=== PATIENT | male | born 1980 | race Caucasian/White ===

== ENCOUNTER 2023-10-19 16:09 | Outpatient (AMB) | payer BC, MEDICAID, SELFPAY ==
[2023-10-19 16:20] VITALS: BP 138/94; PULSE 92; O2SAT 95; BMI 39.1
--- NOTE | 2023-10-19 16:20 | HO.NEPHOV ---
HPI HPI Comments History of Present Illness Details . Solitario is a middle-aged man with a history of significant obesity and hypertension sleep apnea. He has had sleep apnea since age of 19. He uses CPAP regularly. His blood pressure has been difficult to control and chlorthalidone 12.5 mg was added 2 weeks ago. He has been on Ozempic and with diet and exercise he has lost almost 60 lb. Today he has no specific complaints. No headache nausea vomiting. No palpitation no sweating. No polyuria polydipsia. New leg edema. He is history of psoriasis for which she takes clobetasol. No history of any arthritis. [facility] Surgical History H/O hernia repair (~09/2023) H/O removal of cyst (~10/2023) Family History (Updated 10/19/23 @ 16:24 by Vanda Fisher) Father Hypertension Social History (Updated 10/19/23 @ 16:24 by Vanda Fisher) Alcohol intake: current Comment: occ Patient Tobacco Use Status: Former Tobacco user Vital Signs 10/19/23 16:20 Height 5 ft 8 in Weight 257 lb BMI 39.1 BP 138/94 H Blood Pressure Location Lt brachial Position Sitting Pulse 92 Pulse Source Pulse Oximeter Pulse Oximetry (%) 95 Oxygen Delivery Method Room Air Physical Exam Vital Signs: Last Vital Signs Pulse 92 10/19/23 16:20 BP 138/94 H 10/19/23 16:20 Pulse Ox 95 10/19/23 16:20 Oxygen Delivery Method Room Air 10/19/23 16:20 BMI result Body Mass Index 39.1 Repeat blood pressure is 130/90 mm Hg in the left upper extremity. Sitting and standing blood pressure 130/90 mm Hg Const General: comfortable Nutritional Appearance: well nourished Orientation/consciousness: patient oriented x3 HEENT Head: No normal to inspection Mouth: moist mucous membranes Neck Neck: Yes supple and Yes no JVD Resp Auscultation: clear to auscultation bilaterally, no rales and rub present Cardio Jugular venous distension: no JVD Palpation: no palpable S3 and no palpable S4 Heart sounds: no rubs GI Palpation (GI): Soft to palpation and nontender Percussion: No Fluid wave present General: Yes no CVA tenderness Back/Spine/Pelvis Back: no CVA tenderness Skin Rashes: rashes noted (Psoriatic) Neuro General: patient oriented x3 Extrem General: Yes no pedal edema and No clubbing Assessment & Plan Assessment & Plan (1) HTN (hypertension): Comment: In the setting of obesity and sleep apnea. No evidence of hypokalemia or alkalosis Code(s): I10 - Essential (primary) hypertension Plan: At present blood pressure is better controlled. Goal is to maintain blood pressure less than 130/80 mm Hg. We discussed importance of weight loss. He needs to stay on a low-sodium diet which we have discussed. Continue using CPAP regularly which will definitely help to optimize blood pressure. I have increased chlorthalidone from 12.5 mg up to 25 mg once a day. Watch blood pressure with the next few weeks. Once the blood pressure is stabilized we can use a combination pill including amlodipine GISELLE inhibitor and diuretic. Encouraged him to keep monitoring blood pressure at home and to call us if he has any symptoms of hypotension including lightheadedness. Since he is actively losing weight I expect the requirements for antihypertensives to decrease as he loses weight. Medications: New chlorthalidone 25 mg PO QAM 30 tabs 1RF Coding Level of Care Code New Pt Level 4 (39778) Diagnoses HTN (hypertension) I10 Results Reviewed Results Reviewed: All lab results were reviewed serum creatinine 0.7 Serum potassium and CO2 are normal Nephrology Results: No Data to Display
== END 2023-10-19 16:50 | disposition home or self-care (01) ==
PROVIDERS: PCP Family Medicine; Referring Provider Family Medicine; Visit Provider Internal Medicine Hypertension Specialist
DX: I10 Essential (primary) hypertension (principal)
CPT/HCPCS: 99204

== ENCOUNTER → 2023-10-19 16:09 | Outpatient (BNVA) | payer BC, MEDICAID, SELFPAY | PROVIDERS: PCP Family Medicine; Referring Provider Family Medicine; Visit Provider Internal Medicine Hypertension Specialist ==

== ENCOUNTER 2023-11-16 11:31 | Outpatient (AMB) | payer BC, MEDICAID, SELFPAY ==
[2023-11-16 11:32] VITALS: BP 100/80; PULSE 81; O2SAT 95; BMI 38.5
--- NOTE | 2023-11-16 11:32 | HO.NEPHOV ---
HPI HPI Comments History of Present Illness Details . Solitario is a middle-aged man with a history of significant obesity and hypertension sleep apnea. He has had sleep apnea since age of 19. He uses CPAP regularly. His blood pressure has been difficult to control and chlorthalidone 12.5 mg was added 2 weeks ago. He has been on Ozempic and with diet and exercise he has lost almost 60 lb. Today he has no specific complaints. No headache nausea vomiting. No palpitation no sweating. No polyuria polydipsia. New leg edema. He is history of psoriasis for which she takes clobetasol. No history of any arthritis. 11/16/23 Doing well Lost 4 lbs No new issues PFSH Surgical History H/O hernia repair (~09/2023) H/O removal of cyst (~10/2023) Family History Father Hypertension Social History Alcohol intake: current Comment: occ Patient Tobacco Use Status: Former Tobacco user Vital Signs 11/16/23 11:32 Height 5 ft 8 in Weight 253 lb BMI 38.5 BP 100/80 Blood Pressure Location Lt brachial Position Sitting Pulse 81 Pulse Source Pulse Oximeter Pulse Oximetry (%) 95 Oxygen Delivery Method Room Air Physical Exam Vital Signs: Last Vital Signs Pulse 81 11/16/23 11:32 BP 100/80 11/16/23 11:32 Pulse Ox 95 11/16/23 11:32 Oxygen Delivery Method Room Air 11/16/23 11:32 BMI result Body Mass Index 38.5 Repeat blood pressure is 130/90 mm Hg in the left upper extremity. Sitting and standing blood pressure 130/90 mm Hg Const General: comfortable Nutritional Appearance: well nourished Orientation/consciousness: patient oriented x3 HEENT Head: No normal to inspection Mouth: moist mucous membranes Neck Neck: Yes supple and Yes no JVD Resp Auscultation: clear to auscultation bilaterally, no rales and rub present Cardio Jugular venous distension: no JVD Palpation: no palpable S3 and no palpable S4 Heart sounds: no rubs GI Palpation (GI): Soft to palpation and nontender Percussion: No Fluid wave present General: Yes no CVA tenderness Back/Spine/Pelvis Back: no CVA tenderness Skin Rashes: rashes noted (Psoriatic) Neuro General: patient oriented x3 Extrem General: Yes no pedal edema and No clubbing Assessment & Plan Assessment & Plan (1) HTN (hypertension): Comment: In the setting of obesity and sleep apnea. No evidence of hypokalemia or alkalosis Code(s): I10 - Essential (primary) hypertension Plan: At present blood pressure is better controlled. Goal is to maintain blood pressure less than 130/80 mm Hg. We discussed importance of weight loss. He needs to stay on a low-sodium diet which we have discussed. Continue using CPAP regularly which will definitely help to optimize blood pressure. Keep chlorthalidone 25 mg once a day. Encouraged him to keep monitoring blood pressure at home and to call us if he has any symptoms of hypotension including lightheadedness. Since he is actively losing weight I expect the requirements for antihypertensives to decrease as he loses weight. Orders: Orders Basic Metabolic Panel 6 Weeks I10 - Essential (primary) hypertension Coding Level of Care Code Est Pt Level 4 (48341) Diagnoses HTN (hypertension) I10 Results Reviewed Nephrology Results: No Data to Display
== END 2023-11-16 11:47 | disposition home or self-care (01) ==
PROVIDERS: PCP Family Medicine; Visit Provider Internal Medicine Hypertension Specialist
DX: I10 Essential (primary) hypertension (principal)
CPT/HCPCS: 99214

== ENCOUNTER → 2023-11-16 11:31 | Outpatient (BNVA) | payer BC, MEDICAID, SELFPAY | PROVIDERS: PCP Family Medicine; Visit Provider Internal Medicine Hypertension Specialist ==

== ENCOUNTER 2024-01-11 10:49 | Outpatient (AMB) | payer BC, MEDICAID, SELFPAY ==
[2024-01-11 10:53] VITALS: BP 98/72; PULSE 79; O2SAT 96; BMI 38.5
--- NOTE | 2024-01-11 10:53 | HO.NEPHOV_ITS ---
Vital Signs 01/11/24 10:53 Height 5 ft 8 in Weight 253 lb BMI 38.5 BP 98/72 Blood Pressure Location Lt brachial Position Sitting Pulse 79 Pulse Source Pulse Oximeter Pulse Oximetry (%) 96 Oxygen Delivery Method Room Air Intake Visit Reasons: 8 week F/U/ Confirmed Stick Inserter Required: No Accompanied by: Self / Same As Patient Allergies No Known Allergies Allergy (Verified 01/11/24 10:54) Medication List - Last Reconciled 01/11/24 by Eduardo Albert MD amlodipine 5 mg PO DAILY buprenorphine-naloxone 12-3 mg 7 mg sublingual DAILY clobetasol 0.05% 1 appl topical DAILY clonazepam 0.5 mg PO TID PRN lisinopril 20 mg PO DAILY HPI Comments Details: . Solitario is a middle-aged man with a history of significant obesity and hypertension sleep apnea. He has had sleep apnea since age of 19. He uses CPAP regularly. His blood pressure has been difficult to control and chlorthalidone 12.5 mg was added 2 weeks ago. He has been on Ozempic and with diet and exercise he has lost almost 60 lb. Today he has no specific complaints. No headache nausea vomiting. No palpitation no sweating. No polyuria polydipsia. New leg edema. He is history of psoriasis for which she takes clobetasol. No history of any arthritis. 11/16/23 Doing well;Lost 4 lbs ;No new issues 01/11/2024. Solitario has been compliant with his medications. He has been getting lightheadedness when he bends down. Home blood pressure readings have been acceptable. [facility] Surgical History H/O hernia repair (~09/2023) H/O removal of cyst (~10/2023) Family History Father Hypertension Social History Alcohol intake: current Comment: [facility] Patient Tobacco Use Status: Former Tobacco user Physical Exam Vital Signs: Last Vital Signs Pulse 79 01/11/24 10:53 BP 98/72 01/11/24 10:53 Pulse Ox 96 01/11/24 10:53 Oxygen Delivery Method Room Air 01/11/24 10:53 BMI result Body Mass Index 38.5 Const General: comfortable Nutritional Appearance: well nourished Orientation/consciousness: patient oriented x3 HEENT Head: No normal to inspection Mouth: moist mucous membranes Neck Neck: Yes supple and Yes no JVD Resp Auscultation: clear to auscultation bilaterally, no rales and rub present Cardio Jugular venous distension: no JVD Palpation: no palpable S3 and no palpable S4 Heart sounds: no rubs GI Palpation (GI): Soft to palpation and nontender Percussion: No Fluid wave present General: Yes no CVA tenderness Back/Spine/Pelvis Back: no CVA tenderness Skin Rashes: rashes noted (Psoriatic) Neuro General: patient oriented x3 Extrem General: Yes no pedal edema and No clubbing Results Reviewed Results Reviewed: 01/09/2024. Creatinine 0.91 serum lytes normal Potassium 3.6 Nephrology Results: No Data to Display Assessment & Plan Assessment & Plan (1) HTN (hypertension): Comment: In the setting of obesity and sleep apnea. No evidence of hypokalemia or alkalosis Code(s): I10 - Essential (primary) hypertension Category: Medical Plan: . Blood pressure is rather low. I will stop chlorthalidone. Encouraged to watch blood pressure at home and call me with the readings in the next 1-2 weeks. If the blood pressure is suboptimal I will start him back at a lower dose of chlorthalidone at probably 12.5 mg a day. Since he is actively losing weight I expect the requirements for antihypertensives to decrease as he loses weight. We discussed importance of weight loss. He needs to stay on a low-sodium diet which we have discussed. Continue using CPAP regularly which will definitely help to optimize blood pressure. Medications: Discontinued chlorthalidone Discontinued Reason: Doctor's Order 25 mg PO QAM 30 tabs 1RF Coding Level of Care Code Est Pt Level 4 (18918) Diagnoses HTN (hypertension) I10
== END 2024-01-11 11:17 | disposition home or self-care (01) ==
PROVIDERS: PCP Family Medicine; Visit Provider Internal Medicine Hypertension Specialist
DX: I10 Essential (primary) hypertension (principal)
CPT/HCPCS: 99214

== ENCOUNTER → 2024-01-11 10:49 | Outpatient (BNVA) | payer BC, MEDICAID, SELFPAY | PROVIDERS: PCP Family Medicine; Visit Provider Internal Medicine Hypertension Specialist ==

== ENCOUNTER 2024-03-28 10:58 | Outpatient (AMB) | payer BC, MEDICAID, SELFPAY ==
--- NOTE | 2024-03-28 11:04 | HO.NEPHOV ---
Vital Signs 03/28/24 11:05 Height 5 ft 8 in Weight 253 lb BMI 38.5 BP 144/100 H Blood Pressure Location Lt brachial Position Sitting Pulse 77 Pulse Source Pulse Oximeter Pulse Oximetry (%) 98 Oxygen Delivery Method Room Air Intake Visit Reasons: 8 week F/U/ Conf Third Loader Required: No Accompanied by: Self / Same As Patient Allergies No Known Allergies Allergy (Verified 03/28/24 11:06) Medication List - Last Reconciled 03/28/24 by Eduardo Albert MD amlodipine 5 mg PO DAILY buprenorphine-naloxone 12-3 mg 7 mg sublingual DAILY clobetasol 0.05% 1 appl topical DAILY clonazepam 0.5 mg PO TID PRN lisinopril 20 mg PO DAILY HPI Comments Details: . Solitario is a middle-aged man with a history of significant obesity and hypertension sleep apnea. He has had sleep apnea since age of 19. He uses CPAP regularly. His blood pressure has been difficult to control and chlorthalidone 12.5 mg was added 2 weeks ago. He has been on Ozempic and with diet and exercise he has lost almost 60 lb. Today he has no specific complaints. No headache nausea vomiting. No palpitation no sweating. No polyuria polydipsia. New leg edema. He is history of psoriasis for which she takes clobetasol. No history of any arthritis. 11/16/23 Doing well;Lost 4 lbs ;No new issues 01/11/2024. Solitario has been compliant with his medications. He has been getting lightheadedness when he bends down. Home blood pressure readings have been acceptable. 03/28/24 Back on Chlorthalidone [facility] Surgical History H/O hernia repair (~09/2023) H/O removal of cyst (~10/2023) Family History Father Hypertension Social History Alcohol intake: current Comment: [facility] Patient Tobacco Use Status: Former Tobacco user Physical Exam Vital Signs: Last Vital Signs Pulse 77 03/28/24 11:05 BP 144/100 H 03/28/24 11:05 Pulse Ox 98 08/21/24 11:05 Oxygen Delivery Method Room Air 03/28/24 11:05 BMI result Body Mass Index 38.5 Const General: comfortable; No acute distress Orientation/consciousness: patient oriented x3 Eyes General: appearance normal, both eyes and all related structures Visual Lozano: normal visual lozano by confrontation Neck Neck: Yes supple and Yes no JVD Resp Effort & Inspection: normal respiratory effort and respiratory effort not decreased Auscultation: rhonchi Cardio Palpation: no palpable S3 and no palpable S4 Heart sounds: no rubs GI Inspection: Yes normal to inspection Palpation (GI): Soft to palpation Percussion: Yes normal to percussion Auscultation: normal bowel sounds General: Yes no CVA tenderness Back/Spine/Pelvis Back: no CVA tenderness Skin General skin exam: no petechiae and no purpura Neuro General: patient oriented x3 and no focal motor deficits Extrem General: No clubbing and No edema Results Reviewed Nephrology Results: No Data to Display Assessment & Plan Assessment & Plan (1) HTN (hypertension): Comment: In the setting of obesity and sleep apnea. No evidence of hypokalemia or alkalosis Code(s): I10 - Essential (primary) hypertension Category: Medical Plan: . Blood pressure is better controlled Stop Amlodipine 5/Lisinopril 20 /chlorthalidone 12.5 Try exforge HCT 5/169/12.5 We discussed importance of weight loss. He needs to stay on a low-sodium diet which we have discussed. Continue using CPAP regularly which will definitely help to optimize blood pressure. Medications: New [id number]-[id number]-opgecqxvq 5-160-12.5 mg (Exforge HCT) 1 tab PO DAILY 30 tabs 1RF Coding Level of Care Code Est Pt Level 4 (56004) Diagnoses HTN (hypertension) I10
[2024-03-28 11:05] VITALS: BP 144/100; PULSE 77; O2SAT 98; BMI 38.5
== END 2024-03-28 11:23 | disposition home or self-care (01) ==
PROVIDERS: PCP Family Medicine; Visit Provider Internal Medicine Hypertension Specialist
DX: I10 Essential (primary) hypertension (principal)
CPT/HCPCS: 99214

== ENCOUNTER → 2024-03-28 10:58 | Outpatient (BNVA) | payer BC, MEDICAID, SELFPAY | PROVIDERS: PCP Family Medicine; Visit Provider Internal Medicine Hypertension Specialist ==

== ENCOUNTER 2024-07-18 10:05 | Outpatient (AMB) | payer BC, MEDICAID, SELFPAY ==
--- NOTE | 2024-07-18 10:09 | HO.NEPHOV_ITS ---
Vital Signs 07/18/24 10:10 07/18/24 10:28 Height 5 ft 8 in Weight 250 lb BMI 38.0 BP 138/92 H 134/88 Blood Pressure Location Lt brachial Lt brachial Position Sitting Sitting Pulse 86 Pulse Source Pulse Oximeter Pulse Oximetry (%) 98 Oxygen Delivery Method Room Air Intake Visit Reasons: 3 mon follow up/ LVM Lead Web Application Developer Required: No Accompanied by: Self / Same As Patient Allergies No Known Allergies Allergy (Verified 07/18/24 10:11) Medication List - Last Reconciled 07/18/24 by Eduardo Albert MD [id number]-[id number]-[id number] 5-160-12.5 mg 1 tab PO DAILY buprenorphine-naloxone 12-3 mg 7 mg sublingual DAILY clobetasol 0.05% 1 appl topical DAILY clonazepam 0.5 mg PO TID PRN HPI Comments Details: . Solitario is a middle-aged man with a history of significant obesity and hypertension sleep apnea. He has had sleep apnea since age of 19. He uses CPAP regularly. His blood pressure has been difficult to control and chlorthalidone 12.5 mg was added 2 weeks ago. He has been on Ozempic and with diet and exercise he has lost almost 60 lb. Today he has no specific complaints. No headache nausea vomiting. No palpitation no sweating. No polyuria polydipsia. New leg edema. He is history of psoriasis for which she takes clobetasol. No history of any arthritis. 11/16/23 Doing well;Lost 4 lbs ;No new issues 01/11/2024. Solitario has been compliant with his medications. He has been getting lightheadedness when he bends down. Home blood pressure readings have been acceptable. 03/28/24;Back on Chlorthalidone 07/18/24 tolerating Exforge Lost about 50-60 lbs iwth ozempic Conpleting course of Ozempic this month [facility] Surgical History H/O hernia repair (~09/2023) H/O removal of cyst (~10/2023) Family History Father Hypertension Social History Alcohol intake: current Comment: occ Patient Tobacco Use Status: Former Tobacco user Physical Exam Vital Signs: Last Vital Signs Pulse 86 07/18/24 10:10 BP 138/92 H 07/18/24 10:10 Pulse Ox 98 07/18/24 10:10 Oxygen Delivery Method Room Air 07/18/24 10:10 BMI result Body Mass Index 38.0 Comfortable Neck supple no JVD. Lungs entry equal no rales. Heart S1-S2 heard no gallop or rub. Abdomen soft nontender. Neuro alert awake oriented. No asterixis. Extremities no edema. Results Reviewed Nephrology Results: No Data to Display Assessment & Plan Assessment & Plan (1) HTN (hypertension): Comment: In the setting of obesity and sleep apnea. No evidence of hypokalemia or alkalosis Code(s): I10 - Essential (primary) hypertension Category: Medical Plan: . Blood pressure is better controlled Keep exforge HCT 5/160/12.5 We discussed importance of weight loss. He needs to stay on a low-sodium diet which we have discussed. Continue using CPAP regularly which will definitely help to optimize blood pressure. Coding Level of Care Code Est Pt Level 4 (83709) Diagnoses HTN (hypertension) I10
[2024-07-18 10:10] VITALS: BP 138/92; PULSE 86; O2SAT 98; BMI 38.0
[2024-07-18 10:28] VITALS: BP 134/88
--- OUTSIDE RECORDS SUMMARY | 2024-07-19 00:02 | XMS_ITS ---
Author Name [facility] Organization Unknown History of Medication Use Medication Directions Dispensed Refills Start Date End Date Stat amLODIPine (NORVASC) 5 MG tablet Take 5 mg by mouth daily. 06/24/2023 active semaglutide (OZEMPIC) (1 mg/dose pen) prefilled pen injection Inject 1 mg under the skin once a week. 06/24/2023 active buprenorphine-naloxo ne (SUBOXONE) 12-3 MG per SL film DISSOLVE 1/2 FILM UNDER THE TONGUE EVERY DAY 06/24/2023 active lisinopril (PRINIVIL,ZeSTRIL) 5 MG tablet Take 5 mg by mouth daily. 06/24/2023 aborted clonazePAM (KlonoPIN) 0.5 MG tablet Take 0.5 mg by mouth 3 (three) times a day as needed. 06/24/2023 active lisinopril (PRINIVIL,ZeSTRIL) 20 MG tablet Take 1 tablet by mouth. 08/28/2023 active Problems Problem Status Onset Date Problem Type Date of Resoluti on Source Fever, unspecified fever cause active [facility] Flu active [facility]
== END 2024-07-18 10:31 | disposition home or self-care (01) ==
PROVIDERS: PCP Family Medicine; Visit Provider Internal Medicine Hypertension Specialist
DX: I10 Essential (primary) hypertension (principal)
CPT/HCPCS: 99214

== ENCOUNTER → 2024-07-18 10:05 | Outpatient (BNVA) | payer BC, MEDICAID, SELFPAY | PROVIDERS: PCP Family Medicine; Visit Provider Internal Medicine Hypertension Specialist ==

== ENCOUNTER 2025-01-16 09:58 | Outpatient (AMB) | payer BC, SELFPAY ==
[2025-01-16 10:00] VITALS: BP 146/98; PULSE 87; O2SAT 97; BMI 37.7
--- NOTE | 2025-01-16 10:00 | HO.NEPHOV ---
Vital Signs 01/16/25 10:00 01/16/25 10:09 Height 5 ft 8 in Weight 248 lb BMI 37.7 BP 146/98 H 120/90 H Blood Pressure Location Lt brachial Lt brachial Position Sitting Sitting Pulse 87 Pulse Source Pulse Oximeter Pulse Oximetry (%) 97 Oxygen Delivery Method Room Air Intake Visit Reasons: 6 mnts f/u LVM Storeroom Supervisor Required: No Accompanied by: Self / Same As Patient Allergies No Known Allergies Allergy (Verified 01/16/25 10:02) Medication List - Last Reconciled 01/16/25 by Eduardo Albert MD [id number]-whngzkmhv-[id number] 5-160-12.5 mg 1 tab PO DAILY buprenorphine ER (Brixadi Monthly) mg subcut buprenorphine-naloxone 8-2 mg 1 film sublingual DAILY PRN cholecalciferol (vitamin D3) 50 mcg PO DAILY clobetasol 0.05% 1 appl topical DAILY clonazepam 0.5 mg PO TID PRN HPI Comments Details: . Solitario is a middle-aged man with a history of significant obesity and hypertension sleep apnea. He has had sleep apnea since age of 19. He uses CPAP regularly. His blood pressure has been difficult to control and chlorthalidone 12.5 mg was added 2 weeks ago. He has been on Ozempic and with diet and exercise he has lost almost 60 lb. Today he has no specific complaints. No headache nausea vomiting. No palpitation no sweating. No polyuria polydipsia. New leg edema. He is history of psoriasis for which she takes clobetasol. No history of any arthritis. 11/16/23 Doing well;Lost 4 lbs ;No new issues 01/11/2024. Solitario has been compliant with his medications. He has been getting lightheadedness when he bends down. Home blood pressure readings have been acceptable. 03/28/24;Back on Chlorthalidone 07/18/24 tolerating Exforge Lost about 50-60 lbs iwth ozempic Completing course of Ozempic this month 01/16/25 The patient is a 44-year-old male presenting with essential hypertension for ongoing management and monitoring. Notably, the patient experiences elevated blood pressure readings primarily in clinical environments, suspecting white-coat hypertension. There is a notable absence of self-monitoring at home recently, as indicated by patient?s admission of forgetting to measure his blood pressure outside office visits. Despite these elevated clinical readings, the patient feels asymptomatic and attributes his status to an improved lifestyle, which includes significant weight loss of approximately 60 pounds and healthier dietary choices. The patient's previous primary healthcare provider has recently retired, necessitating the establishment of a new primary care for comprehensive management of his hypertension. The patient's blood pressure was initially recorded as 146/98 mmHg during this office visit but decreased to 120/90 mmHg upon subsequent measurement, consistent with prior visitation trends of varying blood pressure readings within the clinical setting. [facility] Surgical History H/O hernia repair (~09/2023) H/O removal of cyst (~10/2023) Family History Father Hypertension Social History Alcohol intake: current Comment: occ Patient Tobacco Use Status: Former Tobacco user Physical Exam Vital Signs: Last Vital Signs Pulse 87 01/16/25 10:00 BP 120/90 H 01/16/25 10:09 Pulse Ox 97 01/16/25 10:00 Oxygen Delivery Method Room Air 01/16/25 10:00 BMI result Body Mass Index 37.7 Comfortable Neck supple no JVD. Lungs entry equal no rales. Heart S1-S2 heard no gallop or rub. Abdomen soft nontender. Neuro alert awake oriented. No asterixis. Extremities no edema. Assessment & Plan Assessment & Plan (1) HTN (hypertension): Comment: In the setting of obesity and sleep apnea. No evidence of hypokalemia or alkalosis Code(s): I10 - Essential (primary) hypertension Category: Medical Plan: . Blood pressure is better controlled Keep exforge HCT 5/160/12.5 We discussed importance of weight loss. He needs to stay on a low-sodium diet which we have discussed. Continue using CPAP regularly which will definitely help to optimize blood pressure. 01/16/25 - Continue with a low salt diet and regular exercise. - Measure blood pressure regularly at home and record readings. - Take lab order papers to [facility] for blood work before the next visit. - Establish care with a new primary care physician. - Follow up in six months or sooner if there are any changes in symptoms. - Contact healthcare provider for any sudden health changes or concerns. Orders: Orders Basic Metabolic Panel 6 Months I10 - Essential (primary) hypertension Total Protein Urine Random 6 Months I10 - Essential (primary) hypertension UA and rflx microscopic 6 Months I10 - Essential (primary) hypertension Creatinine Urine 6 Months I10 - Essential (primary) hypertension Coding Level of Care Code Est Pt Level 4 (68809) Diagnoses HTN (hypertension) I10
[2025-01-16 10:09] VITALS: BP 120/90
--- OUTSIDE RECORDS SUMMARY | 2025-01-16 11:07 | XMS_ITS | Clinical Summary ---
Author Organization Formerly [facility] Address [address] [place] [address] Care Team Providers Care E Business Manager Name Role Phone Unknown Primary Care Provider [phone] Allergies No known active allergies Medications buprenorphine-n aloxone (SUBOXONE) 12-3 MG per SL film DISSOLVE 1/2 FILM UNDER THE TONGUE EVERY DAY 06/20/2023 Active clonazePAM (KlonoPIN) 0.5 MG tablet Take 0.5 mg by mouth 3 (three) times a day as needed. 04/21/2023 Active amLODIPine (NORVASC) 5 MG tablet Take 5 mg by mouth daily. 06/16/2023 Active semaglutide (OZEMPIC) (1 mg/dose pen) prefilled pen injection Inject 1 mg under the skin once a week. Active lisinopril (PRINIVIL,ZeSTR IL) 20 MG tablet Take 1 tablet by mouth. 11/16/2022 Active Social History Tobacco Use Types Packs/Day Years Used Date Smoking Tobacco: Never Assessed Sex and Gender Information Value Date Recorded Sex Assigned at Male 06/22/2023 1:40 PM EST Legal Sex Male 1:39 PM EST Gender Identity Not on file Sexual Orientation Not on file Last Filed Vital Signs Vital Sign Reading Time Taken Comments Blood Pressure 150/94 08/26/2023 8:12 AM EST Pulse 88 08/26/2023 8:12 AM EST Temperature 37.4 ??C (99.4 ??F) 08/26/2023 8:12 AM ES T Respiratory Rate - - Oxygen Saturation 95% 08/26/2023 8:12 AM EST Inhaled Oxygen Concentration - - Weight - - Height - - Body Mass Index - - Plan of Treatment Health Maintenance Due Date Last Done Comments Hepatitis C Virus Screening 1980 HIV Screening 1993 DTaP/Tdap/Td Vaccines (1 - Tdap) 1999 Hepatitis B Vaccines (1 of 3 - 19+ 3-dose series) 1999 COVID-19 Vaccine (4 - 2023-2 5 season) 2024 07/28/2021, 09/25/2020, 08/28/2020 Influenza Vaccine 03/08/2025 05/23/2014, 05/29/2012, 06/05/2010 HPV Vaccines Aged Out No longer eligi ble based on patient's age to complete this topic Pneumococcal Vaccine: Pediatric (0-5 Years) and At-Risk Patients (6 to 49 Years) Aged Out No longer eligible b ased on patient's age to complete this topic Insurance [facility] Care Teams E Business Manager Relationship Specialty Start Date End Date Unknown Unknow Provider Address PCP - General 06/22/23
== END 2025-01-16 10:13 | disposition home or self-care (01) ==
PROVIDERS: PCP Family Medicine; Visit Provider Internal Medicine Hypertension Specialist
DX: I10 Essential (primary) hypertension (principal)
CPT/HCPCS: 99214

== ENCOUNTER 2025-07-24 09:10 | Outpatient (AMB) | payer BC, SELFPAY ==
[2025-07-24 09:31] VITALS: BP 160/98; PULSE 92; O2SAT 97; BMI 39.4
--- NOTE | 2025-07-24 09:31 | HO.NEPHOV_ITS ---
Vital Signs 07/24/25 09:31 07/24/25 09:45 Height 5 ft 8 in Weight 259 lb BMI 39.4 BP 160/98 H 138/92 H Blood Pressure Location Lt brachial Lt brachial Position Sitting Sitting Pulse 92 Pulse Source Pulse Oximeter Pulse Oximetry (%) 97 Oxygen Delivery Method Room Air Intake Visit Reasons: 6 mo follow up-Conf 07/16/2025 in person Nurses' Registry Director Required: No Accompanied by: Self / Same As Patient Allergies No Known Allergies Allergy (Verified 07/24/25 09:32) Medication List - Last Reconciled 07/24/25 by Eduardo Albert MD [id number] 5-160-12.5 mg 1 tab PO DAILY buprenorphine ER (Brixadi Monthly) mg subcut buprenorphine-naloxone 8-2 mg 1 film sublingual DAILY PRN cholecalciferol (vitamin D3) 50 mcg PO DAILY clobetasol 0.05% 1 appl topical DAILY clonazepam 0.5 mg PO TID PRN HPI Comments Details: History of Present Illness The patient is a 45 year old male presenting with a follow-up for hypertension management. He reports that his blood pressure is usually high. His current medications include amlodipine, valsartan, and hydrochlorothiazide. He saw his new primary care physician last week, who noted his blood pressure was in the 130s/80s and made no changes to his medications. The patient's weight has increased from 248 lbs to 259 lbs in the last six months. He is aware of the weight gain and is scheduled to start Zepbound after a formula change in his Ozempic prescription. The patient reports feeling a little congested, but his breathing has been okay. His diet includes frequent takeout meals such as pasta, but he limits Turkmen food and fast food. 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 Results [facility] Surgical History H/O hernia repair (~09/2023) H/O removal of cyst (~10/2023) Family History Father Hypertension Social History (Reviewed 07/24/25 @ 09:32 by CARON Linares Alcohol intake: current Comment: occ Patient Tobacco Use Status: Former Tobacco user Physical Exam Exam Exam: Physical Exam General: Awake. Comfortable. HENT: Neck supple. Mucosa moist. Pulmonary: Lungs aeration equal. Slight congestion noted. Cardiology: Heart S1-S2 heard. No gallop. Abdomen: Soft. Non tender. Bowel sounds normal. Neurologic: No involuntary movements. No myoclonus. Extremities: No edema. No rash. Vital Signs: Last Vital Signs Pulse 92 07/24/25 09:31 BP 138/92 H 07/24/25 09:45 Pulse Ox 97 07/24/25 09:31 Oxygen Delivery Method Room Air 07/24/25 09:31 BMI result Body Mass Index 39.4 Assessment & Plan Assessment & Plan (1) HTN (hypertension): Comment: In the setting of obesity and sleep apnea. No evidence of hypokalemia or alkalosis Code(s): I10 - Essential (primary) hypertension Category: Medical Plan: . Blood pressure is better controlled Keep exforge HCT 5/160/12.5 We discussed importance of weight loss. He needs to stay on a low-sodium diet which we have discussed. Continue using CPAP regularly which will definitely help to optimize blood pressure. 01/16/25 - Continue with a low salt diet and regular exercise. - Measure blood pressure regularly at home and record readings. - Take lab order papers to [facility] for blood work before the next visit. - Establish care with a new primary care physician. - Follow up in six months or sooner if there are any changes in symptoms. - Contact healthcare provider for any sudden health changes or concerns. Plan Plan 1. Hypertension - The patient's blood pressure is slightly elevated, which is attributed to his recent weight gain. - No changes will be made to his current blood pressure medications (amlodipine, valsartan, hydrochlorothiazide), as his blood pressure is expected to improve with weight loss from starting Zepbound. - The patient was advised to monitor his blood pressure at home once or twice a week and to call if it remains above 140 mmHg. - He was counseled to reduce dietary salt intake, particularly from takeout food. - He was advised to maintain good hydration. - He will follow-up in six months. 2. Obesity - The patient has gained 11 pounds in six months, which he attributes to a change in his Ozempic medication. - He is scheduled to start Zepbound to aid with weight loss. - He was encouraged to continue his physical activity, which includes coaching wrestling and baseball three times a week. - The patient is scheduled to see his primary care physician in October. Orders: Orders Basic Metabolic Panel 6 Months I10 - Essential (primary) hypertension Coding Level of Care Code Est Pt Level 4 (35109) Diagnoses HTN (hypertension) I10
[2025-07-24 09:45] VITALS: BP 138/92
--- OUTSIDE RECORDS SUMMARY | 2025-07-24 10:05 | XMS_ITS | Clinical Summary ---
Author Organization [facility] Address [address] [place] [address] Care Team Providers Care Commercial Crabber Name Role Phone Unknown Primary Care Provider [phone] Allergies No known active allergies Medications buprenorphine-n [...] 88 08/26/2023 8:12 AM EST Temperature 37.4 C (99.4 F) 08/26/2023 8:12 AM EST Respiratory Rate - - Oxygen Saturation 95% 08/26/2023 8:12 AM EST Inhaled Oxygen Concentration - - Weight - - Height - - Body Mass Index - - Plan of Treatment Health Maintenance Due Date Last Done Comments Hepatitis C Virus Screening 1980 HIV Screening 1993 DTaP/Tdap/Td Vaccines (1 - Tdap) 1999 Hepatitis B Vaccines (1 of 3 - 19+ 3-dose series) 1999 Influenza Vaccine 03/08/2025 05/23/2014, 05/29/2012, 06/05/2010 COVID-19 Vaccine (4 - 2024-2 6 season) 2025 07/28/2021, 09/25/2020, 08/28/2020 Colonoscopy 2025 HPV Vaccines (No Doses Required) Completed Pneumococcal Vaccine: Pediatric (0-5 Years) and At-Risk Patients (6 to 49 Years) Aged Out No longer eligible b ased on patient's age to complete this topic Insurance [facility] Care Teams Commercial Crabber Relationship Specialty Start Date End Date Unknown Unknow Provider Address PCP - General 06/22/23
--- OUTSIDE RECORDS SUMMARY | 2025-07-24 10:05 | XMS_ITS ---
Author Name [facility] Organization Unknown History of Medication Use Medication Directions Dispensed Refills Start Date End Date Stat us buprenorphine-nalox one (SUBOXONE) 12-3 MG per SL film DISSOLVE 1/2 FILM UNDER THE TONGUE EVERY DAY 06/20/2023 active amLODIPine (NORVASC) 5 MG tablet Take 5 mg by mouth daily. 06/16/2023 active clonazePAM (KlonoPIN) 0.5 MG tablet Take 0.5 mg by mouth 3 (three) times a day as needed. 04/21/2023 active lisinopril (PRINIVIL,ZeSTRIL) 20 MG tablet Take 1 tablet by mouth. 11/16/2022 active lisinopril (PRINIVIL,ZeSTRIL) 5 MG tablet Take 5 mg by mouth daily. 08/26/2023 aborted semaglutide (OZEMPIC) (1 mg/dose pen) prefilled pen injection Inject 1 mg under the skin once a week. active Problems Problem Status Onset Date Problem Type Date of Resoluti on Source Fever, unspecified fever cause active EncounterDiagnosisAct CCT Flu active EncounterDiagnosisAct CCT Encounters Encounter Type Encounter Reason Primary Diagnosis Location Date Ambulatory Fever, unspecified Fever, unspecified See [facility] 08/26/2023 Ambulatory Acute upper respiratory infection, unspecified Acute upper respiratory infection, unspecified [employer] 06/22/2023 Care Team Organization Name Specialty Phone Email Start Date End Da te [employer] 06/22/2023 10/24/2024 [employer] 06/22/2023 06/22/2023
== END 2025-07-24 09:59 | disposition home or self-care (01) ==
LOC: HO.HKAS 09:10
PROVIDERS: PCP Internal Medicine; Visit Provider Internal Medicine Hypertension Specialist
DX: I10 Essential (primary) hypertension (principal)
CPT/HCPCS: 99214